=== PATIENT | female | born 1990 | race Two or more races ===

== ENCOUNTER 2022-12-06 00:03 | Inpatient (IN) | payer OTHER ==
[~2022-12-06] VITALS: Ht 167.6 cm; Wt 79.4 kg
[2022-12-06] MEDS ORDERED: PRENATAL TABLE1 EAC4 PO (00:43)
[2022-12-08] MEDS ORDERED: NAPR500T14 PO (08:28)
== END 2022-12-08 11:48 | disposition home or self-care (01) | DRG 807 ==
LOC: EDBD 00:03 → LDR 00:03 → OB/GYN 06:18
PROVIDERS: ADMIT Obstetrics & Gynecology; ATTEND Obstetrics & Gynecology
PROC: 10E0XZZ Delivery of Products of Conception, External Approach (ICD-10-PCS; principal; 2022-12-06)
PROC: 0KQM0ZZ Repair Perineum Muscle, Open Approach (ICD-10-PCS; 2022-12-06)
PROC: 4A1HXCZ Monitoring of Products of Conception, Cardiac Rate, External Approach (ICD-10-PCS; 2022-12-06)
DX: O70.1 Second degree perineal laceration during delivery (principal); Z37.0 Single live birth; Z3A.38 38 weeks gestation of pregnancy; Z20.822 Contact with and (suspected) exposure to COVID-19